=== PATIENT | female | born 1950 | race Two or more races ===

== ENCOUNTER 2018-10-28 08:16 | Emergency (ER) | payer OTHER ==
[~2018-10-28] VITALS: Ht 162.6 cm; Wt 83.9 kg
[2018-10-28 10:45] VITALS: BP 199/102
[2018-10-28 11:15] LABS: Urine WBC None Seen /hpf (0 - 5)
[2018-10-28 11:50] LABS: Urine Bacteria NONE SEEN /hpf (None Seen); Urine Blood Negative /uL (Negative); Urine Specific Gravity 1.006 (1.001-1.035)
[2018-10-28 11:56] LABS: Basophils # (auto) 0.1 uL; Basophils % (auto) 1.1 % (0.0-2.0); Eosinophils # (auto) 0.1 uL; Eosinophils % (auto) 2.4 % (0.0-7.0); Hematocrit 35.8 % (36.0-46.0); Hemoglobin 11.8 g/dL (12.2-16.2); Lymphocytes % (auto) 18.8 % (10.0-50.0); Mean Corpuscular Hemoglobin 30.6 pg (28.0-32.0); Mean Corpuscular Hgb Conc. 32.9 g/dL (32.0-36.0); Mean Corpuscular Volume 93.1 fL (80.0-100.0); Monocytes # (auto) 0.3 uL; Monocytes % (auto) 5.9 % (0.0-12.0); Neutrophils % (auto) 71.8 % (37.0-80.0); Nucleated Red Blood Cells % 0.1 %; Platelet Count (auto) 175 10^3/uL (140-450); Red Blood Cells 3.85 10^6/uL (4.0-5.20); Red Cell Distribution Width 14.4 % (11.8-14.3); White Blood Cell 5.6 10^3/uL (4.4-10.8)
[2018-10-28] MEDS ORDERED: cloNIDine HCL 0.1 MG TAB PO ONE (12:00)
[2018-10-28 12:06] LABS: INR 1.13 (0.9-1.15); Partial Thromboplastin Time 32.1 sec (23.78-33.04)
[2018-10-28 12:07] LABS: Albumin 3.4 g/dL (3.4-5.0); Calcium 8.6 mg/dL (8.5-10.1)
[2018-10-28 12:13] LABS: BUN/Creatinine Ratio 11.6; Bilirubin, Total 0.5 mg/dL (0.2-1.0)
[2018-10-28] MEDS ORDERED: POTASSIUM CHLORIDE 8 MEQ TAB PO ONE (12:45)
== END 2018-10-28 13:16 | disposition home or self-care (01) ==
LOC: EDBD 08:16 → ER 08:16 → EDUNIT# 08:16 → ER 13:16
DX: I11.0 Hypertensive heart disease with heart failure (principal); I50.9 Heart failure, unspecified; E11.9 Type 2 diabetes mellitus without complications
CPT/HCPCS: 36415; 70450; 71045; 80053; 81001; 83880; 84484; 85025; 85610; 85730

== ENCOUNTER 2023-12-23 15:52 | Emergency (ER) | payer OTHER ==
[~2023-12-23] VITALS: Ht 152.4 cm; Wt 68.0 kg
[2023-12-23] MEDS: ACETAMINOPHEN 500 MG TAB PO ONE (17:00)
[2023-12-23 17:20] LABS: Urine Bacteria FEW /hpf (None Seen); Urine Blood Negative /uL (Negative); Urine Clarity Clear (Clear); Urine Color Light-Yellow (Yellow); Urine Protein, UAD Negative (Negative); Urine Specific Gravity 1.014 (1.001-1.035); Urine Urobilinogen Normal (Negative); Urine WBC 2 /hpf (0 - 5); Urine pH 5.5 (5.0-9.0)
[2023-12-23 18:07] LABS: Basophils # (auto) 0 10 ^3/uL (0-0.2); Basophils % (auto) 0.3 % (0.0-2.0); Eosinophils # (auto) 0.2 10 ^3/uL (0-0.8); Eosinophils % (auto) 1.9 % (0.0-7.0); Hematocrit 35.6 % (36.0-46.0); Hemoglobin 11.6 g/dL (12.2-16.2); Lymphocytes # (auto) 0.7 10 ^3/uL (0.4-5.4); Lymphocytes % (auto) 7.8 % (10.0-50.0); Mean Corpuscular Hemoglobin 33.5 pg (28.0-32.0); Mean Corpuscular Hgb Conc. 32.7 g/dL (32.0-36.0); Mean Corpuscular Volume 102.5 fL (80.0-100.0); Monocytes # (auto) 0.4 10 ^3/uL (0-1.3); Monocytes % (auto) 4.6 % (0.0-12.0); Neutrophils # (auto) 7.6 10 ^3/uL (1.6-8.6); Neutrophils % (auto) 85.4 % (37.0-80.0); Nucleated Red Blood Cells % 0.1 %; Red Blood Cells 3.47 10^6/uL (4.0-5.20); Red Cell Distribution Width 14.2 % (11.8-14.3); White Blood Cell 8.9 10^3/uL (4.4-10.8)
[2023-12-23 18:17] LABS: Chloride 100 mmol/L (98-107); Potassium 5.2 mmol/L (3.5-5.1); Sodium 131 mmol/L (136-145)
[2023-12-23 18:18] LABS: Anion Gap 9 (5-15); Calcium 9.1 mg/dL (8.7-10.4); Carbon Dioxide 22 mmol/L (20-30)
[2023-12-23 18:23] LABS: BUN/Creatinine Ratio 17.4 (10.0-20.0); Blood Urea Nitrogen 26 mg/dL (9-23); Glucose 155 mg/dL (74-106)
[2023-12-23 19:49] VITALS: BP 129/59; PULSE 68; RESP 18; TEMP 98.3; O2SAT 95
== END 2023-12-23 19:51 | disposition home or self-care (01) ==
LOC: EDUNIT# 15:52 → EDBD 15:52 → ER 15:52
DX: G93.41 Metabolic encephalopathy (principal); I11.0 Hypertensive heart disease with heart failure; I50.9 Heart failure, unspecified; E11.9 Type 2 diabetes mellitus without complications; Z98.890 Other specified postprocedural states
CPT/HCPCS: 36415; 70450; 80048; 81001; 85025; 93005

== ENCOUNTER 2025-03-19 15:13 | Inpatient (IN) | payer OTHER ==
[~2025-03-19] VITALS: Ht 162.6 cm; Wt 73.9 kg
--- NOTE | 2025-03-19 15:30 | ED.PDOC ---
Altered Mental Status HPI Comments 74y F who presents to the ED via EMS for chief complaint of syncope. Pt pt daughter, pt was laying down approx 1 hours ago and pt had syncopal episode witnessed by . Pt was bed standing up and had syncopal onto bed. Pt had no trauma or associated injury and EMS was called. EMS arrived on scene and noted pt had decreased blood pressure from sitting to standing position with BP going from 138/88 to 105/68. Pt had vitals checked and noted BP stabilized to 111/63 with no associated symptoms and pt was brought to the ED. EMS states pt was feeling nauseous and pt was given 4 mg Zofran prior to ED arrival. Pt arrives to the ED, alert and oriented. Pt daughter states pt did have tele- pcp visit yesterday and pt was dx with UTI and started to antibiotics. Pt in the ED, states she is having nausea, with vomiting episode prior to ED arrival and dizziness prior to ED arrival. Time Seen by MD: 15:15 Reviewed Notes: Envelope Stamping Machine Operator Notes, Medications, Allergies Allergies: Coded Allergies: NO KNOWN ALLERGIES (Unverified , 10/28/18) Information Source: Patient, Relative, Emergency Med Personnel Mode of Arrival: EMS Brought in by: EMS Severity: Moderate Timing: Hours Duration: Since onset Prehospital treatment: Treatment (zofran) Quality: None Recent: None History of: Diabetes Associated Signs and Symptoms: None Past Medical History PAST MEDICAL HISTORY: CHF, CKF, DM, High Lipids, HTN Surgical History: , Hysterectomy Surgical History (Other): back surgeries, cataracts 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 History: No Pertinent 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 History Family History Family History: Family hx of heart sujit Social History Smoker: Non-Smoker Alcohol: Denies ETOH Use Drugs: Denies Drug Use Lives In: Home Constitutional: reports: malaise, weakness; denies: chills, diaphoresis, fatigue, fever, sweats, others EENTM: denies: blurred vision, double vision, ear bleeding, ear discharge, ear drainage, ear pain, ear ringing, eye pain, eye redness, hearing loss, mouth pain, mouth swelling, nasal discharge, nose bleeding, nose congestion, nose pain, photophobia, tearing, throat pain, throat swelling, voice changes, others Respiratory: denies: cough, hemoptysis, orthopnea, SOB at rest, shortness of breath, SOB with excertion, stridor, wheezing, others Cardiovascular: denies: chest pain, dizzy spells, diaphoresis, Dyspnea on exertion, edema, irregular heart beat, left arm pain, lightheadedness, palpitations, PND, syncope, others Gastrointestinal: denies: abdomen distended, abdominal pain, blood streaked bowels, constipated, diarrhea, dysphagia, difficulty swallowing, hematemesis, melena, nausea, poor appetite, poor fluid intake, rectal bleeding, rectal pain, vomiting, others Genitourinary: denies: abnormal vagina bleeding, burning, dyspareunia, dysuria, flank pain, frequency, hematuria, incontinence, pain, , vagina discharge, urgency, others Neurological: reports: dizziness, fainting; denies: headache, left sided numbness, left sided weakness, numbness, paresthesia, pre-existing deficit, right sided numbness, right sided weakness, seizure, speech problems, tingling, tremors, weakness, others Musculoskeletal: denies: back pain, gout, joint pain, joint swelling, muscle pain, muscle stiffness, neck pain, others Integumetry: denies: bruises, change in color, change in hair/nails, dryness, laceration, lesions, lumps, rash, wounds, others Allergic/Immunocompromised: denies: Difficulty Healing, Frequent Infections, Hives, Itching, others Hematologic/Lymphatic: denies: anemia, blood clots, easy bleeding, easy bruising, swollen glands, others Endocrine: denies: excessive hunger, excessive sweating, excessive thirst, excessive urination, flushing, intolerance to cold, intolerance to heat, unexplained weight gain, unexplained weight loss, others Psychiatric: denies: anxiety, bipolar disorder, depression, hopeless, panic disorder, schizophrenia, sleepless, suicidal, others All Other Systems: Reviewed and Negative Physical Exam General Appearance: Moderate Distress, Obese HEENT: Pale Conjuntivae (L), Pale Conjuntivae (R), Pharynx Normal, TMs Normal Neck: Full Range of Motion, Non-Tender, Normal, Normal Inspection Respiratory: Chest Non-Tender, Lungs Clear, No Accessory Muscle Use, No Respiratory Distress, Normal Breath Sounds Cardiovascular: No Edema, No JVD, No Murmur, No Gallop, Normal Peripheral Pulses, Regular Rate/Rhythm Breast Exam: Deferred Gastrointestinal: No Organomegaly, Non Tender, No Pulsatile Mass, Normal Bowel Sounds, Soft Genitalia: Deferred Pelvic: Deferred Rectal: Deferred Extremities: No calf tenderness, Normal capillary refill, No pedal edema Musculoskeletal : Apperance: Normal Neurologic: Alert, wind field manager II-XII nml as Tested, Motor Weakness, Normal Affect, Normal Mood, No Sensory Deficits Cerebellar Function: Normal Reflexes: Normal Skin: Dry, Pallor, Warm Lymphatic: No Adenopathy EKG EKG : Pulse Rate (adult): 69 Steele: Normal Cardiac Rhythm: Afib Block: None Hypertrophy: None ST: Normal Was a procedure done? Was a procedure done?: No Differential Diagnosis (ALOC) Differential Diagnosis: Dehydration, Hypoglycemia, Encephalopathy, Sepsis, Hypoxemia, Other (UTI) X-Ray, Labs, Meds, VS Vital Signs Date Time Temp Pulse Resp B/P (MAP) Pulse Ox O2 Delivery O2 Flow Rate FiO2 03/19/25 18:07 97.7 69 18 104/53 (70) 93 97.7 03/19/25 16:08 97.8 63 18 111/60 92 97.8 03/19/25 15:30 69 03/19/25 15:26 69 Lab Test 03/19/25 15:48 03/19/25 15:47 Range/Units Sodium Level 139 136-145 mmol/L Potassium Level 4.2 3.5-5.1 mmol/L Chloride Level 104 98-107 mmol/L Carbon Dioxide Level 27 20-31 mmol/L Anion Gap 8 5-15 Blood Urea Nitrogen 26 H 9-23 mg/dL Creatinine 1.85 H 0.550-1.02 mg/dL Glomerular Filtration Rate Calc 28 >90 mL/min BUN/Creatinine Ratio 14.1 10.0-20.0 Serum Glucose 165 H 74-106 mg/dL Calcium Level 8.7 8.7-10.4 mg/dL White Blood Count 9.0 4.4-10.8 10^3/uL Red Blood Count 3.97 L 4.0-5.20 10^6/uL Hemoglobin 13.1 12.2-16.2 g/dL Hematocrit 38.8 36.0-46.0 % Mean Corpuscular Volume 97.7 80.0-100.0 fL Mean Corpuscular Hemoglobin 33.1 H 28.0-32.0 pg Mean Corpuscular Hemoglobin Concent 33.9 32.0-36.0 g/dL Red Cell Distribution Width 14.6 H 11.8-14.3 % Platelet Count 202 140-450 10^3/uL Mean Platelet Volume 9.6 6.9-10.8 fL Neutrophils (%) (Auto) 82.6 H 37.0-80.0 % Lymphocytes (%) (Auto) 9.1 L 10.0-50.0 % Monocytes (%) (Auto) 5.7 0.0-12.0 % Eosinophils (%) (Auto) 2.0 0.0-7.0 % Basophils (%) (Auto) 0.6 0.0-2.0 % Neutrophils # (Auto) 7.4 1.6-8.6 10 ^3/uL Lymphocytes # (Auto) 0.8 0.4-5.4 10 ^3/uL Monocytes # (Auto) 0.5 0-1.3 10 ^3/uL Eosinophils # (Auto) 0.2 0-0.8 10 ^3/uL Basophils # (Auto) 0.1 0-0.2 10 ^3/uL Nucleated Red Blood Cells 0.1 % Lactic Acid Level 1.5 0.4-2.0 mmol/L Troponin I High Sensitivity 57 *H </=34 ng/L Current Medications Medications (Trade) Dose Ordered Sig/Stephani Route Start Time Stop Time Status Last Admin Sodium Chloride 1,000 ml @ 1,000 mls/hr Q1H ONCE IVB 03/19/25 15:30 03/19/25 16:29 DC 03/19/25 16:42 CHEST RADIOGRAPH IMPRESSION: 1. No acute cardiopulmonary disease. The patient's CBC is within normal limits The chemistry panel is within normal limits The lactic acid level is 1.5 The 1st troponin level came back elevated at 57 Because of the episode of hypotension, the patient had an IV Hep-Lock and was given normal saline at 1000 cc bolus The chemistry panel shows a BUN of 26 and a creatinine of 1.85 The patient is being admitted at this time We did contact [facility] and let them know about the elevated troponin as well as the episode of syncope and the low blood pressure They authorize the patient to be admitted secondary to being unstable for transfer The authorization #[id number] We have discussed the findings with the family They understand and agree with the management. Images Reviewed?: Images reviewed and evaluated by me Time of 1ST Reevaluation: 18:36 Reevaluation 1ST: Unchanged Patient Education/Counseling: Other (Patient is slow to respond) Family Education/Counseling: Diagnosis, Treatment, Prognosis SEPSIS Sepsis Screen Physician Orders Urinalysis (03/19/25 15:26) Chest Portable (03/19/25 15:26) Program Coordinator For [facility]idence [facility] (03/19/25 15:26) Pulse Oximetry (03/19/25 15:26) Blood Pressure (03/19/25 15:26) Heplock Iv (03/19/25 15:26) Blood Culture (03/19/25 15:26) Electrocardigram (03/19/25 15:26) Troponin-I Hs (03/19/25 16:26) Troponin-I Hs (03/19/25 18:26) Electrocardigram (03/19/25 16:26) Electrocardigram (03/19/25 18:26) Vital Signs Date Time Temp Pulse Resp B/P (MAP) Pulse Ox O2 Delivery O2 Flow Rate FiO2 03/19/25 18:07 97.7 69 18 104/53 (70) 93 97.7 03/19/25 16:08 97.8 63 18 111/60 92 97.8 03/19/25 15:30 69 03/19/25 15:26 69 Laboratory Tests Test 03/19/25 15:47 Lactic Acid Level 1.5 mmol/L (0.4-2.0) White Blood Count 9.0 10^3/uL (4.4-10.8) Medications Medications Dose Ordered Sig/Stephani Route Start Time Stop Time Status Last Admin Dose Admin Sodium Chloride 1,000 ml @ 1,000 mls/hr Q1H ONCE IVB 03/19/25 15:30 03/19/25 16:29 DC 03/19/25 16:42 Departure 1 Departure Time of Disposition: 18:36 Impression: Primary Impression: Autonomic dysfunction Additional Impressions: Hypotension Qualified Codes: I95.9 - Hypotension, unspecified Elevated troponin Disposition: ADMITTED INPATIENT Admit to: [facility] Condition: Fair Critical Care Note Critical Care Time?: Yes (45 min-critical care time only) Stability Stability form required: Yes Unstable for transfer: Telemetry monitoring (Telemetry monitoring required), ED Physician Assesment (Clinical assesment) Heart Score Heart Score: Heart Score Response (Comments) Value History Slightly Suspicious 0 EKG Normal 0 Age >65 2 Risk Factors >3 or Hx ASHD 2 Troponin 1-2 x's Normal limit 1 Total 5 I personally scribed for JUSTEN MADRID MD (DENEEN) on 03/19/25 at 15:30. E lectronically submitted by Donald Alonzo ([facility] I personally scribed for JUSTEN MADRID MD (DENEEN) on 03/19/25 at 15:48. Electronically submitted by Donald Alonzo ([facility] I personally scribed for JUSTEN MADRID MD (DENEEN) on 03/19/25 at 17:08. Electron[facility] ([facility] JUSTEN MADRID MD Mar 19, 2025 15:30
[2025-03-19 16:07] LABS: Hematocrit 38.8 % (36.0-46.0); Hemoglobin 13.1 g/dL (12.2-16.2); Mean Corpuscular Hemoglobin 33.1 pg (28.0-32.0); Mean Corpuscular Volume 97.7 fL (80.0-100.0); Nucleated Red Blood Cells % 0.1 %
[2025-03-19 16:14] LABS: Chloride 104 mmol/L (98-107); Potassium 4.2 mmol/L (3.5-5.1); Sodium 139 mmol/L (136-145)
[2025-03-19 16:15] LABS: Anion Gap 8 (5-15); Calcium 8.7 mg/dL (8.7-10.4); Carbon Dioxide 27 mmol/L (20-31)
[2025-03-19 16:20] LABS: BUN/Creatinine Ratio 14.1 (10.0-20.0)
[2025-03-19 16:27] LABS: Blood Urea Nitrogen 26 mg/dL (9-23); Glucose 165 mg/dL (74-106)
[2025-03-19] MEDS: SODIUM CHLORIDE 0.9% 1,000 ML IVB ONE (16:42)
--- NOTE | 2025-03-19 16:56 | DVH ---
CHEST RADIOGRAPH Indication: WEAKNESS Technique: Single frontal view of the chest was obtained Comparison: None FINDINGS: Lines and Tubes: None Lungs: No focal consolidation. Pleura: No effusion. No pneumothorax. Cardiomediastinal contours: Unremarkable Bones: No acute osseous abnormality. IMPRESSION: 1. No acute cardiopulmonary disease.
[2025-03-19] MEDS ORDERED: NITROGLYCERIN 0.4 MG SL TAB SL PRN (20:15)
[2025-03-19] MEDS ORDERED: MORPHINE SULFATE INJ 2 MG/ml SYRG IV PRN (20:15)
[2025-03-19] MEDS ORDERED: ONDANSETRON HCL 4 MG/2 ML VIAL IV PRN (20:15)
[2025-03-19 20:43] LABS: Urine Protein, UAD 1+ (Negative)
--- NOTE | 2025-03-19 21:16 | DVH ---
Carotid Duplex Date: 03/19/2025 08:30 PM Clinical History: syncope Comparison: None Technique: Duplex Doppler evaluation of the extracranial carotid and vertebral arteries including col or Doppler and spectral/pulsed waveform analysis was performed. Findings: RIGHT SIDE: The peak systolic velocities are 47 cm/s in the distal CCA and 93 cm/s in the proximal ICA.The ICA/CC A ratio is 2 cm The external carotid artery is patent with peak systolic velocity of 80 cm/s proximally. There is appropriate antegrade flow in the right vertebral artery. LEFT SIDE: The peak systolic velocities are 38 cm/s in the distal CCA and 77 cm/s in the proximal ICA.. The ICA/ CCA ratio is 2. The external carotid artery is patent with peak systolic velocity of 162 cm/s proximally. There is appropriate antegrade flow in the left vertebral artery. IMPRESSION: 1. No hemodynamically significant stenosis noted in the right carotid system. 2. No hemodynamically significant stenosis noted in the left carotid system. 3. Reference: Radiology 2003; 229:340-346
[2025-03-19] MEDS: ACETAMINOPHEN 325 MG TAB PO PRN (21:33)
[2025-03-19] MEDS: ATORVASTATIN 20 MG TAB PO SCH (21:33)
[2025-03-20] VITALS (11 sets, daily range): BP systolic 144–183; BP diastolic 70–102; PULSE 70–94; RESP 16–20; TEMP 97.7–98.7; O2SAT 95–97
--- NOTE | 2025-03-20 04:08 | DVHHP2 ---
History of Present Illness Reason for Visit: Syncope History of Present Illness 74-year-old female presents for evaluation of syncopal episode. Patient presents after having a syncopal episode witnessed by her . When she stood up she fell onto her bed. There was no trauma. On arrival patient's blood pressure was in the low 100s. Currently denies headache or blurred vision. No chest pain or palpitations. No other acute complaints reported. Past Medical History Diabetes mellitus, dyslipidemia, hypertension, chronic kidney disease, CHF Past Surgical History Hysterectomy, Family History Noncontributory Smoke: No ALCOHOL: none Drugs: None Lives: with Family Review of Systems Review of Systems Review of systems are currently negative otherwise addressed in HPI. Allergies: Coded Allergies: NO KNOWN ALLERGIES (Unverified , 10/28/18) Medications Current Medications Medications Dose Ordered Sig/Stephani Route Start Time Stop Time Status Last Admin Dose Admin Nitroglycerin 0.4 mg Q5MINP PRN SL 03/19/25 20:15 Morphine Sulfate 2 mg Q30M PRN IV 03/19/25 20:15 Atorvastatin Calcium 40 mg HS PO 03/19/25 22:00 03/19/25 21:33 40 MG Aspirin 162 mg DAILY PO 03/20/25 10:00 Pantoprazole Sodium 40 mg DAILY@0600 PO 03/20/25 06:00 Ondansetron HCl 4 mg Q4HP PRN IV 03/19/25 20:15 Acetaminophen 650 mg Q6HP PRN PO 03/19/25 20:15 03/19/25 21:33 650 MG Exam Vital Signs Vital Signs Date Time Temp Pulse Resp B/P (MAP) Pulse Ox O2 Delivery O2 Flow Rate FiO2 03/20/25 01:00 97.9 76 17 144/90 (108) 95 97.9 03/20/25 00:59 Room Air* 0 21 Exam Gen: 74-year-old female in no apparent distress. Skin: Warm, dry, normal color and texture, no rash. HEENT: Normocephalic atraumatic, mucous membranes moist and pink. Neck: Cervical and supraclavicular nodes normal without enlargement, trachea is midline, thyroid gland is normal without masses. Pulmonary: Clear to auscultation and percussion bilaterally. Cardiac: Regular rate and rhythm. No murmur Abdomen: Soft, nontender, nondistended, bowel sounds present all 4 quadrants, no guarding, no rigidity, no organomegaly. Extremities: No cyanosis, clubbing, no edema Neuro: Cranial nerves II through XII grossly intact, normal affect and speech, no focal motor deficits. Labs/Xrays ORDERING PHYSICIAN: JUSTEN MADRID MD PROCEDURE(s): CXRP - CHEST PORTABLE REASON: WEAKNESS ORDER NUMBER(s): [id number], ACCESSION NUMBER(s): [id number] CHEST RADIOGRAPH Indication: WEAKNESS Technique: Single frontal view of the chest was obtained Comparison: None FINDINGS: Lines and Tubes: None Lungs: No focal consolidation. Pleura: No effusion. No pneumothorax. Cardiomediastinal contours: Unremarkable Bones: No acute osseous abnormality. IMPRESSION: 1. No acute cardiopulmonary disease. Labs Test 03/19/25 20:29 03/19/25 19:20 03/19/25 15:48 03/19/25 15:47 Range/Units Troponin I High Sensitivity 47 *H </=34 ng/L Urine Color Yellow Yellow Urine Clarity Clear Clear Urine pH 5.5 5.0-9.0 Urine Specific Dinosaur 1.020 1.001-1.035 Urine Protein 1+ H Negative Urine Ketones Negative Negative Urine Blood Negative Negative /uL Urine Nitrite Negative Negative Urine Bilirubin Negative Negative Urine Urobilinogen 2 H Negative mg/dL Urine Leukocyte Esterase 2+ Negative /uL Urine RBC 7 0 - 4 /hpf Urine Microscopic WBC 35 H 0-5 /HPF Urine Squamous Epithelial Cells Few <5 /hpf Urine Bacteria None seen None Seen /hpf Urine Hyaline Casts Few 0 - 2 /lpf Urine Mucus Few None Seen Urine Glucose Normal Normal mg/dL Sodium Level 139 136-145 mmol/L Potassium Level 4.2 3.5-5.1 mmol/L Chloride Level 104 98-107 mmol/L Carbon Dioxide Level 27 20-31 mmol/L Anion Gap 8 5-15 Blood Urea Nitrogen 26 H 9-23 mg/dL Creatinine 1.85 H 0.550-1.02 mg/dL Glomerular Filtration Rate Calc 28 >90 mL/min BUN/Creatinine Ratio 14.1 10.0-20.0 Serum Glucose 165 H 74-106 mg/dL Calcium Level 8.7 8.7-10.4 mg/dL White Blood Count 9.0 4.4-10.8 10^3/uL Red Blood Count 3.97 L 4.0-5.20 10^6/uL Hemoglobin 13.1 12.2-16.2 g/dL Hematocrit 38.8 36.0-46.0 % Mean Corpuscular Volume 97.7 80.0-100.0 fL Mean Corpuscular Hemoglobin 33.1 H 28.0-32.0 pg Mean Corpuscular Hemoglobin Concent 33.9 32.0-36.0 g/dL Red Cell Distribution Width 14.6 H 11.8-14.3 % Platelet Count 202 140-450 10^3/uL Mean Platelet Volume 9.6 6.9-10.8 fL Neutrophils (%) (Auto) 82.6 H 37.0-80.0 % Lymphocytes (%) (Auto) 9.1 L 10.0-50.0 % Monocytes (%) (Auto) 5.7 0.0-12.0 % Eosinophils (%) (Auto) 2.0 0.0-7.0 % Basophils (%) (Auto) 0.6 0.0-2.0 % Neutrophils # (Auto) 7.4 1.6-8.6 10 ^3/uL Lymphocytes # (Auto) 0.8 0.4-5.4 10 ^3/uL Monocytes # (Auto) 0.5 0-1.3 10 ^3/uL Eosinophils # (Auto) 0.2 0-0.8 10 ^3/uL Basophils # (Auto) 0.1 0-0.2 10 ^3/uL Nucleated Red Blood Cells 0.1 % Lactic Acid Level 1.5 0.4-2.0 mmol/L SEPSIS Sepsis Screen Date sepsis recognized/suspect: Mar 19, 2025 Time Sepsis recognized/suspect: 1929 Recent Procedure: No On Antibiotic Therapy: No Respiratory Rate >20: No Heart Rate >90: No Temp<36 C (96.8 F) or >38.3 C: No SBP <90 or MAP <65 mmHG: No New Acute Mental Status Change: No Is the patient on CPAP, BIPAP,: No Physician Orders Admit (03/19/25 20:08) Nitroglycerin Sublingual (Ntrostat Subli (03/19/25 20:15) Morphine Sulfate Injection (03/19/25 20:15) Stat Ekg For Chest Pain (03/19/25 20:08) Notify Md Of Changes From Base (03/19/25 20:08) Associate Business Analyst For 24 Hours (03/19/25 20:08) Emergency Dysrhythmia Protocol (03/19/25 20:08) Rhythm Strips Once Every Shift (03/19/25 20:08) Oxygen By Nasal Cannula (03/19/25 20:08) Basic Metabolic Panel (03/20/25 04:00) Atorvastatin (Lipitor) (03/19/25 22:00) Aspirin Tablet (03/20/25 10:00) Pantoprazole Tablet (Protonix Tablet) (03/20/25 06:00) Renal Standard(2gna,3gk,Lopho) (03/20/25 Breakfast) Ondansetron Hcl (Zofran) (03/19/25 20:15) Complete Blood Count (03/20/25 04:00) Cardiac Diet-2gna,Lofat,Lochol (03/20/25 Breakfast) Echo 2d Mode Cardiac Dop (03/19/25 20:10) Carotid Duplx W Color Dop (03/19/25 20:10) Condition: Fair (03/19/25 20:10) Acetaminophen Tablet (Tylenol Tablet) (03/19/25 20:15) Bedrest With Bathroom Privileg (03/19/25 20:10) * Cardiology Consult (03/20/25 02:42) Vital Signs Date Time Temp Pulse Resp B/P (MAP) Pulse Ox O2 Delivery O2 Flow Rate FiO2 03/20/25 01:00 97.9 76 17 144/90 (108) 95 97.9 03/20/25 00:59 76 17 95 Room Air* 0 21 03/19/25 21:45 77 12 129/59 (82) 97 Medications Medications Dose Ordered Sig/Stephani Route Start Time Stop Time Status Last Admin Dose Admin Acetaminophen 650 mg Q6HP PRN PO 03/19/25 20:15 03/19/25 21:33 650 MG Atorvastatin Calcium 40 mg HS PO 03/19/25 22:00 03/19/25 21:33 40 MG Assessment/Plan Assessment/Plan Assessment Syncope Symptomatic hypotension Elevated troponin, downtrending Diabetes mellitus Chronic kidney disease UTI Plan Admit the patient to telemetry to the hospitalist Cardiology consultation Echocardiogram/carotid ultrasound pending Rocephin Resume home medications, hold antihypertensives Continue treatment per orders. Plan discussed with: Patient My Orders Orders - PARUL HAWK Procedure Category Date Status Time Admit ADMIT 03/19/25 Transmitted 20:08 Nitroglycerin PHA 03/19/25 In Process Sublingual (Ntrostat 20:15 Morphine Sulfate PHA 03/19/25 In Process Injection 20:15 Stat Ekg For Chest [facility] 03/19/25 In Process Pain 20:08 Notify Md Of Changes [facility] 03/19/25 In Process From Base 20:08 Associate Business Analyst For [facility] 03/19/25 In Process 24 Hours 20:08 Emergency Dysrhythmia [facility] 03/19/25 In Process Protocol 20:08 Rhythm Strips Once [facility] 03/19/25 In Process Every Shift 20:08 Oxygen By Nasal RT 03/19/25 Transmitted Cannula 20:08 Basic Metabolic Panel LAB 03/20/25 Logged 04:00 Atorvastatin (Lipitor) PHA 03/19/25 In Process 22:00 Aspirin Tablet PHA 03/20/25 In Process 10:00 Pantoprazole Tablet PHA 03/20/25 In Process (Protonix Tablet) 06:00 Renal DIET 03/20/25 Transmitted Standard(2gna,3gk,Lopho) Breakfast Ondansetron Hcl PHA 03/19/25 In Process (Zofran) 20:15 Complete Blood Count LAB 03/20/25 Logged 04:00 Cardiac DIET 03/20/25 Transmitted Diet-2gna,Lofat,Lochol Breakfast Echo 2d Mode Cardiac US 03/19/25 Logged DOP 20:10 Carotid Duplx W Color US 03/19/25 Resulted DOP 20:10 Condition: Fair [facility] 03/19/25 In Process 20:10 Acetaminophen Tablet PHA 03/19/25 In Process (Tylenol Tablet) 20:15 Bedrest With Bathroom [facility] 03/19/25 In Process Privileg 20:10 * Cardiology Consult CONS 03/20/25 Transmitted 02:42 Date of Service: Mar 19, 2025 Billing Provider: PARUL HAWK Common Visit Codes: [id number] INP/OBS CARE (HIGH) PARUL HAWK Mar 20, 2025 04:08
[2025-03-20] MEDS: PANTOPRAZOLE 40 MG TAB PO SCH (05:30)
[2025-03-20] MEDS ORDERED: PANT1INJ3 PO (05:31)
[2025-03-20] MEDS ORDERED: MAGN400T40 PO (05:31)
[2025-03-20] MEDS ORDERED: HYDR50TA47 PO (05:31)
[2025-03-20] MEDS ORDERED: ASCO500T11 PO (05:31)
[2025-03-20] MEDS ORDERED: ASPI1TAB20 PO (05:31)
[2025-03-20] MEDS ORDERED: CARV25TA55 PO (05:31)
[2025-03-20] MEDS ORDERED: TEMA30CA PO (05:31)
[2025-03-20] MEDS ORDERED: LISI20TA56 PO (05:31)
[2025-03-20] MEDS ORDERED: ATOR40TA52 PO (05:31)
[2025-03-20] MEDS ORDERED: ISOS1TAB29 PO (05:31)
[2025-03-20] MEDS ORDERED: CHOL20007 PO (05:31)
[2025-03-20] MEDS ORDERED: MELA3TAB27 PO (05:31)
[2025-03-20] MEDS ORDERED: NORT25CA PO (05:31)
[2025-03-20] MEDS ORDERED: FAMO20TA10 PO (05:31)
[2025-03-20 06:24] LABS: Hematocrit 37.7 % (36.0-46.0); Hemoglobin 12.9 g/dL (12.2-16.2); Mean Corpuscular Hemoglobin 33.3 pg (28.0-32.0); Mean Corpuscular Volume 97.1 fL (80.0-100.0); Nucleated Red Blood Cells % 0.1 %
[2025-03-20 06:25] LABS: Anion Gap 10 (5-15); Carbon Dioxide 28 mmol/L (20-31); Chloride 104 mmol/L (98-107); Potassium 3.8 mmol/L (3.5-5.1); Sodium 142 mmol/L (136-145)
[2025-03-20 06:26] LABS: Calcium 8.8 mg/dL (8.7-10.4)
[2025-03-20 06:31] LABS: BUN/Creatinine Ratio 15.8 (10.0-20.0)
[2025-03-20 06:34] LABS: Blood Urea Nitrogen 32 mg/dL (9-23); Glucose 106 mg/dL (74-106)
[2025-03-20] MEDS: cefTRIAXone 1GM/50ML D5W 50 ML IV SCH (09:14)
[2025-03-20] MEDS: ISOSORBIDE MONONITRATE ER 60 MG TAB PO SCH (09:17)
--- NOTE | 2025-03-20 09:58 | DVHINCON2 ---
Date Seen: Mar 20, 2025 Referring Physician JAGUAR Jackson Reason for Consultation Syncope History of Present Illness This is a Senegalese-speaking 74-year-old female patient who presents to the emergency room with chief complaint of near syncopal episode. The patient reports she was sitting on the couch and suddenly began to feel clammy and diaphoretic. The patient's daughter who was at bedside, states that she was not present at time of episode but the patient's called her to tell her that the patient kept repeating "I am going to pass out". The patient's daughter was on the phone when symptoms were happening to the patient. EMS was called and the patient was brought to emergency room for further evaluation. No twelve lead electrocardiogram found in patient's hard chart or on cardio process server. A twelve lead electrocardiogram was ordered at time of assessment and was performed by bedside RN. Twelve lead electrocardiogram reveals sinus rhythm with nonspecific ST segment changes to lateral leads, first-degree conduction delay and PAC. Initial troponin level of 57ng/L with down trend thereafter. Significant past medical history includes congestive heart failure, hyp ertension, dyslipidemia, orthostatic hypotension, chronic kidney disease, and insomnia. The patient's daughter states that the patient has been told in the past about her orthostatic hypotension and has been educated regarding positional changes. It was also worth noting, that the patient takes many antihypertensive medications and does not regularly check her blood pressure home. Past Medical History Past medical history reviewed. No other significant than mentioned above. Past Surgical History Hysterectomy Back surgery x2 Cataract surgery Family History Family history reviewed. Social History Denies the use of tobacco, alcohol or illicit drugs. Allergies: Coded Allergies: NO KNOWN ALLERGIES (Unverified , 10/28/18) Home Meds Reported Medications Melatonin (KP MELATONIN) 3 Mg Tab, 5 TAB PO BID, #30 TAB 2 Refills 03/20/25 Nortriptyline Hcl (PAMELOR CAPSULE) 25 Mg Cp, 1 CAP PO QPM, #30 CAP 3 Refills 03/20/25 Temazepam (Temazepam) 30 Mg Cap, 1 CAP PO QPM, #30 CAP 1 Refill 03/20/25 Famotidine (PEPCID TABLET) 20 Mg Tb, 1 TAB PO DAILY, #60 TAB 5 Refills 03/20/25 Ascorbic Acid (VITAMIN C TABLET) 500 Mg Tb, 1 TAB PO DAILY, #30 TAB 3 Refills 03/20/25 Cholecalciferol (VITAMIN D3) 2,000 Unit Tab, 1 TAB PO DAILY, #30 TAB 5 Refills 03/20/25 Magnesium Oxide (MAGNESIUM OXIDE) 400 Mg Tab, 1 TAB PO DAILY, #30 TAB 5 Refills 03/20/25 Atorvastatin Calcium (ATORVASTATIN CALCIUM) 40 Mg Tab, 1 TAB PO DAILY, #30 TAB 5 Refills 03/20/25 Aspirin (Aspir-81) 81 Mg Tab, 1 TAB PO DAILY, #30 TAB 5 Refills 03/20/25 Isosorbide Mononitrate (Isosorbide Mononitrate Er) 60 Mg Tab, 1 TAB PO DAILY, #30 TAB 5 Refills 03/20/25 Carvedilol (Carvedilol) 25 Mg Tab, 1 TAB PO BID, #180 TAB 1 Refill 03/20/25 Lisinopril (Lisinopril) 20 Mg Tab, 1 TAB PO DAILY, #30 TAB 5 Refills 03/20/25 Pantoprazole Sodium (PANTOPRAZOLE SODIUM) 40 Mg Inj, 40 MG PO DAILY, INJ 03/20/25 Hydralazine Hcl (Hydralazine Hcl) 50 Mg Tab, 1 TAB PO QID, #90 TAB 5 Refills 03/20/25 Home Meds Home medications reviewed. Current Medications Current Medications Medications (Trade) Dose Ordered Sig/Stephani Route PRN Reason Start Time Stop Time Status Last Admin Nitroglycerin (Ntrostat Sublingual) 0.4 mg Q5MINP PRN SL FOR CHEST PAIN 03/19/25 20:15 Morphine Sulfate 2 mg Q30M PRN IV FOR CHEST PAIN 03/19/25 20:15 Atorvastatin Calcium (Lipitor) 40 mg HS PO 03/19/25 22:00 03/19/25 21:33 Aspirin 162 mg DAILY PO 03/20/25 10:00 03/20/25 09:16 Pantoprazole Sodium (Protonix Tablet) 40 mg DAILY@0600 PO 03/20/25 06:00 03/20/25 05:30 Ondansetron HCl (Zofran) 4 mg Q4HP PRN IV NAUSEA / VOMITING 03/19/25 20:15 Acetaminophen (Tylenol Tablet) 650 mg Q6HP PRN PO PAIN SCALE 1-3 OR TEMP>100.4 03/19/25 20:15 03/19/25 21:33 Ceftriaxone Sodium 50 ml @ 100 mls/hr DAILY@09 IV 03/20/25 09:00 03/20/25 09:14 Hydralazine HCl (Apresoline Tablet) 25 mg Q12HR PO 03/20/25 10:00 03/20/25 09:16 Isosorbide Mononitrate (Imdur Er Tablet) 30 mg DAILY PO 03/20/25 10:00 03/20/25 09:17 Review of Systems Constitutional: No symptom reported Ears, Nose, & Throat: No symptom reported Eyes: No symptom reported Neurological: Syncope Pulmonary/Respiratory: No symptoms reported Cardiovascular: No symptom reported Gastrointestinal: No symptom reported Genitourinary: No symptom reported Musculoskeletal: No symptom reported Skin: No symptom reported Psychiatric: No symptom reported Endocrine: No symptom reported Hematologic/Lymphatic: No symptom reported Vital Signs Vital Signs Date Time Temp Pulse Resp B/P (MAP) Pulse Ox O2 Delivery O2 Flow Rate FiO2 03/20/25 09:17 157/79 03/20/25 09:00 98.7 78 18 97 98.7 03/20/25 00:59 Room Air* 0 21 Physical Exam General Appearance: Cooperative. Well-developed. Well-nourished. No acute distress. Pulmonary/Respiratory: Clear, bilateral breaths sounds. Cardiovascular/Chest: Regular rate and rhythm. Peripheral Pulses: 2+ Radial (R). 2+ Radial (L). 2+ Pedal (R). 2+ Pedal (L) Abdominal Exam: Normal bowel sounds. Ankle Exam: Negative ankle edema Lower extremities: Negative lower extremity edema Neuro/Mental Status: A/OX4, coherent. Thoughts/Psych: Normal thought pattern. Appropriate mood and affect. Good judgment and insight. Appearance: No acute distress. Skin Exam: Normal inspection. Normal color. Warm and dry. Labs/Diagnostic Data Labs Test 03/20/25 05:47 03/19/25 20:29 03/19/25 19:20 03/19/25 15:47 Range/Units White Blood Count 6.6 # 4.4-10.8 10^3/uL Red Blood Count 3.89 L 4.0-5.20 10^6/uL Hemoglobin 12.9 12.2-16.2 g/dL Hematocrit 37.7 36.0-46.0 % Mean Corpuscular Volume 97.1 80.0-100.0 fL Mean Corpuscular Hemoglobin 33.3 H 28.0-32.0 pg Mean Corpuscular Hemoglobin Concent 34.3 32.0-36.0 g/dL Red Cell Distribution Width 14.4 H 11.8-14.3 % Platelet Count 175 140-450 10^3/uL Mean Platelet Volume 9.2 6.9-10.8 fL Neutrophils (%) (Auto) 71.4 37.0-80.0 % Lymphocytes (%) (Auto) 19.3 10.0-50.0 % Monocytes (%) (Auto) 7.1 0.0-12.0 % Eosinophils (%) (Auto) 1.8 0.0-7.0 % Basophils (%) (Auto) 0.4 0.0-2.0 % Neutrophils # (Auto) 4.7 1.6-8.6 10 ^3/uL Lymphocytes # (Auto) 1.3 0.4-5.4 10 ^3/uL Monocytes # (Auto) 0.5 0-1.3 10 ^3/uL Eosinophils # (Auto) 0.1 0-0.8 10 ^3/uL Basophils # (Auto) 0 0-0.2 10 ^3/uL Nucleated Red Blood Cells 0.1 % Sodium Level 142 136-145 mmol/L Potassium Level 3.8 3.5-5.1 mmol/L Chloride Level 104 98-107 mmol/L Carbon Dioxide Level 28 20-31 mmol/L Anion Gap 10 5-15 Blood Urea Nitrogen 32 H 9-23 mg/dL Creatinine 2.02 H 0.550-1.02 mg/dL Glomerular Filtration Rate Calc 25 >90 mL/min BUN/Creatinine Ratio 15.8 10.0-20.0 Serum Glucose 106 74-106 mg/dL Calcium Level 8.8 8.7-10.4 mg/dL Troponin I High Sensitivity 47 *H </=34 ng/L Urine Color Yellow Yellow Urine Clarity Clear Clear Urine pH 5.5 5.0-9.0 Urine Specific [place] 1.020 1.001-1.035 Urine Protein 1+ H Negative Urine Ketones Negative Negative Urine Blood Negative Negative /uL Urine Nitrite Negative Negative Urine Bilirubin Negative Negative Urine Urobilinogen 2 H Negative mg/dL Urine Leukocyte Esterase 2+ Negative /uL Urine RBC 7 0 - 4 /hpf Urine Microscopic WBC 35 H 0-5 /HPF Urine Squamous Epithelial Cells Few <5 /hpf Urine Bacteria None seen None Seen /hpf Urine Hyaline Casts Few 0 - 2 /lpf Urine Mucus Few None Seen Urine Glucose Normal Normal mg/dL Lactic Acid Level 1.5 0.4-2.0 mmol/L Assessment Syncope, rule out cardiac etiology NSTEMI, likely type II Rule out structural heart disease Hypertension History of orthostatic hypotension Dyslipidemia Urinary tract infection Chronic kidney disease Prediabetes Insomnia Plan/Recommendation We will continue with the following plan/recommendations (Dr. Summers): * Transthoracic echocardiogram to evaluate cardiac function * Bilateral carotid ultrasound: No hemodynamically significant stenosis in right or left carotid system * Orthostatic vitals * Lipid-lowering agent * Continuous telemetry monitoring * Antibiotics per primary care team Thank you for allowing us to care for this patient. Please call with any questions or concerns. Critical care time spent: 44 minutes This medical document was created using an electronic medical record system with voice recognition software and computerized dictation system. Although this document has been carefully reviewed, there might still be some phonetic and typographical errors. Occasional wrong-word or ``sound-alike substitutions may have occurred due to the inherent limitations of voice recognition software. These areas are purely typographical due to imperfections of the software programs and do not reflect any compromise in the patient's medical care. Please read the chart carefully and recognize, using context, where these substitutions have occurred. Plan discussed with: Patient NYHA Physical activity limitations: NA Date of Service: Mar 20, 2025 Billing Provider: PARIS PIZANO Cardiology Common Codes: [id number] INP/OBS CARE (High) Cardiology Consultation Codes: [id number] CONSULT <45MIN PARIS PIZANO Mar 20, 2025 09:58
--- NOTE | 2025-03-20 10:17 | DVHPN2 ---
Progress Note Date Seen: Mar 20, 2025 Medical Necessity Reason Pt with a Central, PICC or Fol: No Subjective Patient reports: No new complaints Review of Systems: HEENT:Normal, CVS:Normal, RESPIRATORY:Normal, GI:Normal, :Normal, MSK:Normal, NEURO:Normal Objective vital signs Vital Sign Date Time Temp Pulse Resp B/P (MAP) Pulse Ox O2 Delivery O2 Flow Rate FiO2 03/20/25 09:17 157/79 03/20/25 09:00 98.7 78 18 97 98.7 03/20/25 00:59 Room Air* 0 21 Total Intake and Output 03/19/25 03/19/25 03/20/25 15:00 23:00 07:00 Intake Total 0 ml Balance 0 ml medications Current Medications Medications Dose Ordered Sig/Stephani Route Start Time Stop Time Status Last Admin Dose Admin Nitroglycerin 0.4 mg Q5MINP PRN SL 03/19/25 20:15 Morphine Sulfate 2 mg Q30M PRN IV 03/19/25 20:15 Atorvastatin Calcium 40 mg HS PO 03/19/25 22:00 03/19/25 21:33 40 MG Aspirin 162 mg DAILY PO 03/20/25 10:00 03/20/25 09:16 162 MG Pantoprazole Sodium 40 mg DAILY@0600 PO 03/20/25 06:00 03/20/25 05:30 40 MG Ondansetron HCl 4 mg Q4HP PRN IV 03/19/25 20:15 Acetaminophen 650 mg Q6HP PRN PO 03/19/25 20:15 03/19/25 21:33 650 MG Ceftriaxone Sodium 50 ml @ 100 mls/hr DAILY@09 IV 03/20/25 09:00 03/20/25 09:14 100 MLS/HR Hydralazine HCl 25 mg Q12HR PO 03/20/25 10:00 03/20/25 09:16 25 MG Isosorbide Mononitrate 30 mg DAILY PO 03/20/25 10:00 03/20/25 09:17 30 MG Hydralazine HCl 10 mg Q6HP PRN IV 03/20/25 10:15 UNV Examination: GENERAL:Normal, HEENT:Normal, NECK:Normal, LUNGS:Normal, CVS:Normal, ABDOMEN:Normal, MSK:Normal, SKIN:Normal, NEURO:Normal, :Normal laboratory and microbiology Laboratory Tests 03/20/25 05:47 Test 03/20/25 05:47 Range/Units Serum Glucose 106 74-106 mg/dL Problem List/Assessment/Plan Problem List/Assessment/Plan #1 syncopy ?autonomic dysfunction #2 htn: monitor #3 ckd stage 3: usg #4 uti: iv rocephin #5 nstemi: cardio eval #6 hyperlipidemia #7 chronic systolic/diastolic heart failure unstable to transfer advance care planning- full code- time spent 19 mins Plan discussed with: Patient, Daughter My Orders My Orders Orders - PARUL MOSHER MD Procedure Category Date Status Time Kidney US 03/20/25 Logged 10:11 Urine Bacterial LACEY 03/20/25 Transmitted Culture 10:11 Pt Request For Service PT 03/20/25 Logged 10:11 Hydralazine Injection PHA 03/20/25 Transmitted (Apresoline Inject 10:15 Complete Blood Count LAB 03/21/25 Verified 06:00 Comprehensive LAB 03/21/25 Verified Metabolic Panel 06:00 Date of Service: Mar 20, 2025 Billing Provider: PARUL MOSHER MD Common Visit Codes: [id number] INP/OBS CARE(HIGH) Secondary Visit Codes: [id number] CARE PLAN 30 MINUTES PARUL MOSHER MD Mar 20, 2025 10:17
[2025-03-20 10:28] LABS: Magnesium 2.2 mg/dL (1.6-2.6); Triglycerides 112.0 mg/dL (< 150)
[2025-03-20 10:30] LABS: Cholesterol 127.0 mg/dL (< 200); HDL Cholesterol 47.0 mg/dL (40-59)
--- NOTE | 2025-03-20 10:53 | DVH ---
INDICATION: renal failure TECHNIQUE: Multiple real-time sonographic images of the kidneys and bladder were obtained. COMPARISON: None FINDINGS: The right kidney measures 8 cm in length, which is normal in size. There is normal echogeni city of the right kidney. No hydronephrosis. The left kidney measures 9 cm in length, which is normal in size. There is normal echogenicity of the left kidney. No hydronephrosis. 5 mm nonobstructing left lower pole renal calculus No large intraluminal masses are seen in the bladder. Prior to voiding the bladder volume measures vo lume 170 cc. IMPRESSION: 1. Normal sonographic appearance of the kidneys. No hydronephrosis. 5 mm left lower pole calculus.
[2025-03-20] MEDS: hydrALAZINE HCL 20 MG/ML VL IV PRN (13:18)
--- NOTE | 2025-03-20 13:40 | ECG ---
[facility] Test Date: 2025-03-19 Test Time: 15:26:42 Pat Name: LORETA LAW Department: ED Room: 0218T Gender: F Vp Of Product: DARIO : 1950 Requested By: JUSTEN MADRID Order Number: [id number] Reading MD: Measurements Intervals [place] Rate: 69 P: 0 GA: 0 QRS: -29 QRSD: 122 T: 135 QT: 468 QTc: 502 Interpretive Statements Atrial fibrillation LVH with IVCD and secondary repol abnrm Prolonged QT interval Please click the below link to view image of tracing.
[2025-03-20] MEDS: ISOSORBIDE MONONITRATE ER 60 MG TAB PO ONE (17:03)
[2025-03-21] VITALS (8 sets, daily range): BP systolic 145–187; BP diastolic 74–104; PULSE 63–95; RESP 12–20; TEMP 97.7–98.7; O2SAT 96–98
[2025-03-21 06:34] LABS: Hematocrit 39.4 % (36.0-46.0); Hemoglobin 13.8 g/dL (12.2-16.2); Mean Corpuscular Hemoglobin 33.9 pg (28.0-32.0); Mean Corpuscular Volume 97.2 fL (80.0-100.0); Nucleated Red Blood Cells % 0.0 %
[2025-03-21 06:54] LABS: Alanine Aminotransferase 10 U/L (7-40); Alkaline Phosphatase 72 U/L (46-116); Anion Gap 10 (5-15); BUN/Creatinine Ratio 16.7 (10.0-20.0); Calcium 9.2 mg/dL (8.7-10.4); Carbon Dioxide 28 mmol/L (20-31); Chloride 103 mmol/L (98-107); Potassium 3.6 mmol/L (3.5-5.1); Sodium 141 mmol/L (136-145)
[2025-03-21 06:55] LABS: Albumin 4.1 g/dL (3.2-4.8); Blood Urea Nitrogen 24 mg/dL (9-23); Glucose 131 mg/dL (74-106); Total Protein 6.7 g/dL (5.7-8.2)
[2025-03-21 06:56] LABS: Bilirubin, Total 0.5 mg/dL (0.2-1.0)
--- NOTE | 2025-03-21 07:37 | ECG ---
[facility] Test Date: 2025-03-20 Test Time: 09:38:42 Pat Name: LORETA LAW Department: Respiratoy Room: 0218T B Gender: F Library Services Dean: JOE : 1950 Requested By: PARIS PIZANO Order Number: [id number] Reading MD: Measurements Intervals [place] Rate: 75 P: 0 [place]: 0 QRS: -2 QRSD: 133 T: 145 QT: 441 QTc: 493 Interpretive Statements Atrial fibrillation IVCD, consider atypical LBBB Please click the below link to view image of tracing.
[2025-03-21] MEDS: ISOSORBIDE MONONITRATE ER 60 MG TAB PO SCH (09:58)
--- NOTE | 2025-03-21 11:09 | DVHDS2 ---
Discharge Summary Date of Admission Mar 19, 2025 at 20:08 Date of Discharge: Mar 21, 2025 Labs/Diagnostic Data: Laboratory Results Test 03/21/25 05:44 03/20/25 05:47 03/19/25 20:29 03/19/25 19:20 White Blood Count 6.0 10^3/uL (4.4-10.8) Red Blood Count 4.05 10^6/uL (4.0-5.20) Hemoglobin 13.8 g/dL (12.2-16.2) Hematocrit 39.4 % (36.0-46.0) Mean Corpuscular Volume 97.2 fL (80.0-100.0) Mean Corpuscular Hemoglobin 33.9 pg (28.0-32.0) Mean Corpuscular Hemoglobin Concent 34.9 g/dL (32.0-36.0) Red Cell Distribution Width 14.5 % (11.8-14.3) Platelet Count 184 10^3/uL (140-450) Mean Platelet Volume 9.3 fL (6.9-10.8) Neutrophils (%) (Auto) 69.7 % (37.0-80.0) Lymphocytes (%) (Auto) 18.8 % (10.0-50.0) Monocytes (%) (Auto) 8.2 % (0.0-12.0) Eosinophils (%) (Auto) 2.7 % (0.0-7.0) Basophils (%) (Auto) 0.6 % (0.0-2.0) Neutrophils # (Auto) 4.2 10 ^3/uL (1.6-8.6) Lymphocytes # (Auto) 1.1 10 ^3/uL (0.4-5.4) Monocytes # (Auto) 0.5 10 ^3/uL (0-1.3) Eosinophils # (Auto) 0.2 10 ^3/uL (0-0.8) Basophils # (Auto) 0 10 ^3/uL (0-0.2) Nucleated Red Blood Cells 0.0 % Sodium Level 141 mmol/L (136-145) Potassium Level 3.6 mmol/L (3.5-5.1) Chloride Level 103 mmol/L (98-107) Carbon Dioxide Level 28 mmol/L (20-31) Anion Gap 10 (5-15) Blood Urea Nitrogen 24 mg/dL (9-23) Creatinine 1.44 mg/dL (0.550-1.02) Glomerular Filtration Rate Calc 38 mL/min (>90) BUN/Creatinine Ratio 16.7 (10.0-20.0) Serum Glucose 131 mg/dL (74-106) Calcium Level 9.2 mg/dL (8.7-10.4) Total Bilirubin 0.5 mg/dL (0.2-1.0) Aspartate Amino Transferase (AST) 21 U/L (13-40) Alanine Aminotransferase (ALT) 10 U/L (7-40) Alkaline Phosphatase 72 U/L (46-116) Total Protein 6.7 g/dL (5.7-8.2) Albumin 4.1 g/dL (3.2-4.8) Hemoglobin A1c 6.4 % A1C (<5.7) Magnesium Level 2.2 mg/dL (1.6-2.6) Triglycerides Level 112 mg/dL (< 150) Cholesterol Level 127 mg/dL (< 200) LDL Cholesterol 64 mg/dL (< 100) HDL Cholesterol 47 mg/dL (40-59) Thyroid Stimulating Hormone (TSH) 0.95 uIU/mL (0.55-4.78) Troponin I High Sensitivity 47 ng/L (</=34) Urine Color Yellow (Yellow) Urine Clarity Clear (Clear) Urine pH 5.5 (5.0-9.0) Urine Specific [place] 1.020 (1.001-1.035) Urine Protein 1+ (Negative) Urine Ketones Negative (Negative) Urine Blood Negative /uL (Negative) Urine Nitrite Negative (Negative) Urine Bilirubin Negative (Negative) Urine Urobilinogen 2 mg/dL (Negative) Urine Leukocyte Esterase 2+ /uL (Negative) Urine RBC 7 /hpf (0 - 4) Urine Microscopic WBC 35 /HPF (0-5) Urine Squamous Epithelial Cells Few /hpf (<5) Urine Bacteria None seen /hpf (None Seen) Urine Hyaline Casts Few /lpf (0 - 2) Urine Mucus Few (None Seen) Urine Glucose Normal mg/dL (Normal) Test 03/19/25 15:47 Lactic Acid Level 1.5 mmol/L (0.4-2.0) Other Laboratory Tests 03/21/25 05:44 Brief Hx & Hospital Course: see dictated note Condition at Discharge: Fair Final Diagnosis/Problems List syncopy Discharge Disposition: Acute Care Facility Discharge Instruct/Medications Diet: Cardiac 2g Na,low cholest Activity: No Restrictions, As Tolerated Follow Up/Referral: fu with water mill Medications: per mar Scheduled Ascorbic Acid (Vitamin C Tablet), 1 TAB PO DAILY, (Reported) Aspirin (Aspir-81), 1 TAB PO DAILY, (Reported) Atorvastatin Calcium (Atorvastatin Calcium), 1 TAB PO DAILY, (Reported) Carvedilol (Carvedilol), 1 TAB PO BID, (Reported) Cholecalciferol (Vitamin D3), 1 TAB PO DAILY, (Reported) Famotidine (Pepcid Tablet), 1 TAB PO DAILY, (Reported) Hydralazine Hcl (Hydralazine Hcl), 1 TAB PO QID, (Reported) Isosorbide Mononitrate (Isosorbide Mononitrate Er), 1 TAB PO DAILY, (Reported) Lisinopril (Lisinopril), 1 TAB PO DAILY, (Reported) Magnesium Oxide (Magnesium Oxide), 1 TAB PO DAILY, (Reported) Melatonin (Kp Melatonin), 5 TAB PO BID, (Reported) Nortriptyline Hcl (Pamelor Capsule), 1 CAP PO QPM, (Reported) Pantoprazole Sodium (Pantoprazole Sodium), 40 MG PO DAILY, (Reported) Temazepam (Temazepam), 1 CAP PO QPM, (Reported) Discharge Statement: "Patient was advised to return to the ER or call 911 if any headaches, dizziness, shortness of breath, chest pain, abdominal pain, bleeding, fevers, or worsening of medical condition. Patient was counseled about treatment plan, medications, possible side effects, patientverbalized understanding. All questions were answered to the best of my ability. This discharge took greater then 30 minutes in planning, reviewing documentation, counseling the patient, and discussing with other team members." ASSESSMENT ASSESSMENT Assessment syncopy Date of Service: Mar 21, 2025 Billing Provider: PARUL MOSHER MD Common Visit Codes: 80431-TLH/OBS DISCH DAY >30min PARUL MOSHER MD Mar 21, 2025 11:09
--- NOTE | 2025-03-21 11:19 | DVHDS ---
DATE OF DISCHARGE: 03/21/2025 TRANSFER SUMMARY The patient is a 74-year-old lady who was admitted with history of syncopal episode and low blood pressure. The patient has history of chronic kidney disease, congestive heart failure, hypertension, hyperlipidemia. HOSPITAL COURSE: The patient was seen in Cardiology consult by Dr. Summers. The patient had evidence of UTI and was placed on IV antibiotics. Creatinine was elevated at 2 that improved to 1.5 at time of discharge. The patient's blood pressure was 111/60 at admission. The patient is now hypertensive. The patient's echocardiogram is currently pending. She will be transferred to [place] for further workup as per family wishes. FINAL DIAGNOSES: * Syncope with questionable autonomic dysfunction. * Hypertension. * CKD stage 3. * UTI. * Non-STEMI. * Hyperlipidemia. * Chronic systolic/diastolic heart failure. The patient's troponin levels were elevated up to 57. * Acute on chronic renal failure, questionable vasomotor nephropathy. Time spent in discharge planning, reviewing paperwork, and discussion with family was 39 minutes. MD CONCHIS Garcia/SATHYA TID: [id number] RECEIPT: [id number]
--- NOTE | 2025-03-21 11:47 | DVHPN2 ---
Consult Progress Note Date Seen: Mar 21, 2025 Subjective Review of Systems: CVS:Normal, RESPIRATORY:Normal, NEURO:Normal Objective vital signs Vital Sign Date Time Temp Pulse Resp B/P (MAP) Pulse Ox O2 Delivery O2 Flow Rate FiO2 03/21/25 09:58 152/97 03/21/25 08:30 95 17 97 Room Air* 0 21 03/21/25 05:00 97.9 97.9 Total Intake and Output 03/20/25 03/20/25 03/21/25 15:00 23:00 07:00 Intake Total 50 ml 1200 ml 700 ml Balance 50 ml 1200 ml 700 ml medications Current Medications Medications Dose Ordered Sig/Stephani Route Start Time Stop Time Status Last Admin Dose Admin Nitroglycerin 0.4 mg Q5MINP PRN SL 03/19/25 20:15 Morphine Sulfate 2 mg Q30M PRN IV 03/19/25 20:15 Atorvastatin Calcium 40 mg HS PO 03/19/25 22:00 03/20/25 21:12 40 MG Aspirin 162 mg DAILY PO 03/20/25 10:00 03/21/25 09:58 162 MG Pantoprazole Sodium 40 mg DAILY@0600 PO 03/20/25 06:00 03/21/25 05:30 40 MG Ondansetron HCl 4 mg Q4HP PRN IV 03/19/25 20:15 Acetaminophen 650 mg Q6HP PRN PO 03/19/25 20:15 03/21/25 04:51 650 MG Ceftriaxone Sodium 50 ml @ 100 mls/hr DAILY@09 IV 03/20/25 09:00 03/21/25 08:25 100 MLS/HR Hydralazine HCl 25 mg Q12HR PO 03/20/25 10:00 03/21/25 09:58 25 MG Hydralazine HCl 10 mg Q6HP PRN IV 03/20/25 10:15 03/21/25 04:53 10 MG Isosorbide Mononitrate 60 mg DAILY PO 03/21/25 10:00 03/21/25 09:58 60 MG Examination: LUNGS:Normal, CVS:Normal (anesthesia director sinus rhythm with multiple PACs), NEURO:Normal laboratory and microbiology Laboratory Tests 03/21/25 05:44 Test 03/21/25 05:44 Range/Units Serum Glucose 131 H 74-106 mg/dL Problem List/Assessment/Plan Problem List/Assessment/Plan Near syncopal event rule out cardiac etiology Accelerated hypertension NSTEMI, likely type II 2/2 to above Rule out structural heart disease Dyslipidemia Urinary tract infection Chronic kidney disease Prediabetes Insomnia Plan/Recommendation (Dr. Summers) * Transthoracic echocardiogram to evaluate cardiac function * Bilateral carotid ultrasound completed * No hemodynamically significant stenosis in right or left carotid system * Orthostatic vitals completed, negative * Aggressive blood pressure control * Lipid-lowering agent * Continuous telemetry monitoring * Blood pressure log at home Agree with transfer to [facility], the patient could benefit from a stress test if deemed necessary. We will sign off at this time. Kindly call with any questions or concerns. Thank you for allowing us to care for this patient. This medical document was created using an electronic medical record system with voice recognition software and computerized dictation system. Although this document has been carefully reviewed, there might still be some phonetic and typographical errors. Occasional wrong-word or ``sound-alike substitutions may have occurred due to the inherent limitations of voice recognition software. These areas are purely typographical due to imperfections of the software programs and do not reflect any compromise in the patient's medical care. Please read the chart carefully and recognize, using context, where these substitutions have occurred. Plan discussed with: Patient, Spouse, Daughter, Other Date of Service: Mar 21, 2025 Billing Provider: NORBERTO MCKEON Cardiology Common Codes: [id number] HOSP CARE([facility] NORBERTO MCKEON Mar 21, 2025 11:47
--- NOTE | 2025-03-22 07:20 | ECG ---
[facility] Test Date: 2025-03-20 Test Time: 09:39:48 Pat Name: LORETA LAW Department: Respiratoy Room: 0218T B Gender: F Care Technician: JOE : 1950 Requested By: PARUL MOSHER Order Number: [id number] Reading MD: Measurements Intervals [place] Rate: 76 P: 81 MS: 241 QRS: -1 QRSD: 122 T: 142 QT: 432 QTc: 486 Interpretive Statements Sinus rhythm Atrial premature complex Prolonged MS interval IVCD, consider atypical LBBB Please click the below link to view image of tracing.
== END 2025-03-21 20:25 | disposition short-term general hospital (02) | DRG 280 ==
LOC: EDBD 15:13 → ER 15:14 → OVERFLOW 20:08 → TELE-CENTR 23:44
PROVIDERS: ADMIT Internal Medicine; ATTEND Internal Medicine
DX: I21.4 Non-ST elevation (NSTEMI) myocardial infarction (principal); N17.0 Acute kidney failure with tubular necrosis; I13.0 Hypertensive heart and chronic kidney disease with heart failure and stage 1 through stage 4 chronic kidney disease, or unspecified chronic kidney disease; I50.42 Chronic combined systolic (congestive) and diastolic (congestive) heart failure; N39.0 Urinary tract infection, site not specified; G90.89 Other disorders of autonomic nervous system; E11.22 Type 2 diabetes mellitus with diabetic chronic kidney disease; N18.30 Chronic kidney disease, stage 3 unspecified; E78.5 Hyperlipidemia, unspecified; I95.1 Orthostatic hypotension; G47.00 Insomnia, unspecified; Z88.8 Allergy status to other drugs, medicaments and biological substances; Z90.710 Acquired absence of both cervix and uterus
CPT/HCPCS: 36415; 71045; 76775; 80048; 80053; 80061; 81001; 83036; 83605; 83735; 84443; 84484; 85025; 87040; 87086; 93005; 93306; 93886; 96360; 97163; 99291; G0378